=== PATIENT | male | born 1970 | race Caucasian/White ===

== ENCOUNTER 2016-05-25 17:12 | Emergency (ER) | payer OTHER ==
--- NOTE | 2016-05-25 17:24 | ER Document Report ---
ED Medical Screen (RME) - General Stated Complaint: CHEST PAIN Notes: patient with SVT with symptoms for 30 minutes I have greeted and performed a rapid initial assessment of this patient. A comprehensive ED assessment and evaluation of the patient, analysis of test results and completion of the medical decision making process will be conducted by additional ED providers. TRAVEL OUTSIDE OF THE [place] IN LAST 30 DAYS: No - Related Data Allergies/Adverse Reactions: No Known Allergies Allergy (Unverified 08/17/15 08:55) Past Medical History - Past Medical History Cardiac Medical History: Denies: Hx Coronary Artery Disease, Hx Heart Attack, Hx Hypertension Pulmonary Medical History: Denies: Hx Asthma, Hx Bronchitis, Hx COPD, Hx Pneumonia Neurological Medical History: Denies: Hx Cerebrovascular Accident, Hx Seizures Musculoskeltal Medical History: Reports Hx Arthritis - BOTH KNEES - Immunizations Hx Diphtheria, Pertussis, Tetanus Vaccination: No
[2016-05-25] MEDS ORDERED: ADENOSINE INJ/PF 6 MG/2 ML SDV IV ONE ×6 (17:35→18:05)
[2016-05-25] MEDS ORDERED: PROPOFOL 100 ML IV ONE (17:47)
[2016-05-25] MEDS ORDERED: MIDAZOLAM 2 MG/2 ML INJ ONE (17:48)
[2016-05-25] MEDS ORDERED: PROPOFOL INJ 200 MG/20 ML VIAL IV ONE (18:05)
[2016-05-25] MEDS ORDERED: MIDAZOLAM 2 MG/2 ML INJ IV ONE (18:05)
--- NOTE | 2016-05-25 18:08 | ER Document Report ---
ED Cardiac - General Chief Complaint: Palpitations Stated Complaint: CHEST PAIN Notes: Patient is a 45-year-old male, past medical history PTSD, SVT (on Diltiazem), presents with 1 hour of feeling his heart racing. On arrival, the patient is in SVT. He is scheduled to see a livestock judging coach in 6 weeks. His last SVT attack was one year ago. He is not on blood thinners. Denies chest pain, shortness of breath, nausea, vomiting, leg swelling, cough, fevers or back pain. TRAVEL OUTSIDE OF THE [place] IN LAST 30 DAYS: No - Related Data Allergies/Adverse Reactions: No Known Allergies Allergy (Unverified 08/17/15 08:55) Past Medical History - General Information source: Patient - Social History Smoking Status: Unknown if Ever Smoked Chew tobacco use (# tins/day): No Frequency of alcohol use: Occasional Drug Abuse: None Family History: Reviewed & Not Pertinent Patient has suicidal ideation: No Patient has homicidal ideation: No - Past Medical History Cardiac Medical History: Denies: Hx Coronary Artery Disease, Hx Heart Attack, Hx Hypertension Pulmonary Medical History: Denies: Hx Asthma, Hx Bronchitis, Hx COPD, Hx Pneumonia Neurological Medical History: Denies: Hx Cerebrovascular Accident, Hx Seizures Renal/ Medical History: Denies: Hx Peritoneal Dialysis Musculoskeltal Medical History: Reports Hx Arthritis - BOTH KNEES - Immunizations Hx Diphtheria, Pertussis, Tetanus Vaccination: No Review of Systems - Review of Systems Notes: REVIEW OF SYSTEMS: CONSTITUTIONAL: -fevers, -chills EENT: -eye pain, -difficulty swallowing, -nasal congestion CARDIOVASCULAR:-chest pain, +palpitations, -syncope. RESPIRATORY: -cough, -SOB GASTROINTESTINAL: -abdominal pain, - nausea, -vomiting, -diarrhea GENITOURINARY: -dysuria, -hematuria MUSCULOSKELETAL: -back pain, -neck pain SKIN: -rash or skin lesions. HEMATOLOGIC: -easy bruising or bleeding. LYMPHATIC: -swollen, enlarged glands. NEUROLOGICAL: -altered mental status or loss of consciousness, -headache, - neurologic symptoms PSYCHIATRIC: -anxiety, -depression. ALL OTHER SYSTEMS REVIEWED AND NEGATIVE. Physical Exam - Vital signs Vitals: Pulse Ox 100 05/25/16 17:30 - Notes Notes: PHYSICAL EXAMINATION: GENERAL: Well-appearing, well-nourished and in no acute distress. HEAD: Atraumatic, normocephalic. EYES: Pupils equal round and reactive to light, extraocular movements intact, sclera anicteric, conjunctiva are normal. ENT: nares patent, oropharynx clear without exudates. Moist mucous membranes. NECK: Normal range of motion, supple without lymphadenopathy LUNGS: Breath sounds clear to auscultation bilaterally and equal. No wheezes rales or rhonchi. HEART: Regular rhythm and tachycardic. ABDOMEN: Soft, nontender, normoactive bowel sounds. No guarding, no rebound. No masses appreciated. EXTREMITIES: Normal range of motion, no pitting or edema. No cyanosis. NEUROLOGICAL: Cranial nerves grossly intact. Normal speech, normal gait. Normal sensory, motor, and reflex exams. PSYCH: Normal mood, normal affect. SKIN: Warm, Dry, normal turgor, no rashes or lesions noted. Course - Re-evaluation Re-evalutation: Patient has stable SVT. 6 mg, 12 mg, and 18 mg of adenosine did not break his SVT. Patient was verbally consented for procedural sedation for cardioversion. Cardioversion was attempted with 150 J and he converted into sinus rhythm. Patient is feeling much better and is asymptomatic at this time. Told him to continue his diltiazem and follow-up with his livestock judging coach as scheduled. Given strict return precautions and understands. - Vital Signs Vital signs: Temp Pulse Resp BP Pulse Ox 93 10 L 125/84 99 05/25/16 18:20 05/25/16 18:29 05/25/16 18:42 05/25/16 18:20 Procedures - Conscious Sedation Conscious sedation Time started: 17:20 Time completed: 17:30 Consent obtained: Yes Indication: Cardioversion for SVT Last meal: 15:00 Prior complications: Procedural sedation Normal healthy pt.: P1. - ASA Classification Airway Evaluation: Normal anatomy Mallampati Classification: Class 1 Used during procedure: Suction available, IV access obtained, Pulse ox on pt., hospital monitor on pt. Medications administered: Versed, Diprivan Reversal agents: None I personally performed/intraservice time: Sedation, Procedure, 30 min or less Complications: No - Additional Procedures Cardioversion/Defib Additional Procedures: Cardioversion/defib Notes: 150 Joules synchronized cardioversion Critical Care Note - Critical Care Note Total time excluding time spent on procedures (mins): 35 Discharge - Discharge Clinical Impression: SVT (supraventricular tachycardia) Condition: Good Disposition: HOME, SELF-CARE Additional Instructions: Palpitations (Irregular/Rapid Heartrate) Irregular or rapid heartbeat is called "palpitation." To diagnose the cause of palpitation, we have to "catch it in the act" with an EKG. Sinus Tachycardia: This is a rapid (but NORMAL) rhythm that can be due to fever, pain, anxiety, lack of sleep, over-exertion, or drugs. Cold medications, caffeine, and diet pills are particularly likely to cause tachycardia. Usually , all that's required is rest, reassurance, and avoiding caffeine, alcohol, nicotine, and unnecessary medicines. Paroxysmal Atrial Tachycardia (PAT): This abnormally rapid heartbeat is caused by a "short circuit" in the electrical system of the heart. It is not dangerous, unless other heart disease is present. These attacks of PAT may occur occasionally for years. Medication is available for treatment. Paroxysmal Atrial Fibrillation or Atrial Flutter: This is irregular electrical activity in the upper heart chamber. These abnormal rhythms often occur with valve disease or in hearts damaged by hardening of the arteries. These rhythms usually require further testing, for example a cardiac echo. Premature Beats: Extra beats occur more commonly after caffeine, nicotine , alcohol, cold pills, diet pills. Emotional stress or fatigue also provoke them. Extra beats are only dangerous when heart disease is present. They usually need no treatment. If they're frequent, or if evidence of heart disease develops, medication can be given to suppress them. If we were unable to "catch" the palpitations on EKG, you should try to get an EKG immediately if the symptoms begin again. Contact the physician at once if you develop persistent lightheadedness, shortness of breath, chest pain , or swelling of the ankles. Referrals: PARI HARRY MD [ACTIVE STAFF] - Follow up as needed
[2016-05-25] MEDS: NORMAL SALINE 1000 ML 1,000 ML IV PRN ×2 (18:24→18:28)
[2016-05-25 19:18] VITALS: BP 125/84
--- NOTE | 2016-05-25 20:39 | EKG REPORT ---
SEVERITY:- OTHERWISE NORMAL ECG - SINUS TACHYCARDIA : Confirmed by: Samantha García MD 25-May-2016 20:39:02
--- NOTE | 2016-05-25 20:39 | EKG REPORT ---
SEVERITY:- NORMAL ECG - SINUS RHYTHM : Confirmed by: Samantha García MD 25-May-2016 20:38:56
--- NOTE | 2016-05-25 20:43 | EKG REPORT ---
SEVERITY:- ABNORMAL ECG - ATRIAL FIBRILLATION, V-RATE 71-132 : Confirmed by: Samantha García MD 25-May-2016 20:43:28
--- NOTE | 2016-05-25 20:44 | EKG REPORT ---
SEVERITY:- ABNORMAL ECG - JUNCTIONAL TACHYCARDIA BORDERLINE ST DEPRESSION, DIFFUSE LEADS : Confirmed by: Samantha García MD 25-May-2016 20:44:01
== END 2016-05-25 18:45 | disposition home or self-care (01) ==
LOC: ER 17:12
PROC: 5A2204Z Restoration of Cardiac Rhythm, Single (ICD-10-PCS; principal; 2016-05-25)
DX: I47.1 Supraventricular tachycardia (principal); R07.9 Chest pain, unspecified; F43.10 Post-traumatic stress disorder, unspecified
CPT/HCPCS: 93005; 99291; 93010; 92960; J2250; J7030; J0153; J2704